=== PATIENT | female | born 1990 | race Caucasian/White ===

== ENCOUNTER 2019-11-08 09:13 | Emergency (ER) | payer OTHER ==
[~2019-11-08] VITALS: Ht 160 cm; Wt 65.8 kg
[~2019-11-08 09:13] MED LIST: BACTRIM DS TAB1 EACH PO; COLACE100 MG PO; CYCLOBENZAPRINE; VICODIN; ZOFRAN ODT4 MG PO
[2019-11-08] MEDS ORDERED: NOHOMEMEDICATIONS (09:18)
[2019-11-08 09:51] LABS: ABSOLUTE BASOPHILS 0.1 thou/uL (0.0-0.2); ABSOLUTE LYMPHOCYTES 1.9 thou/uL (0.8-5.3); ABSOLUTE MONOCYTES 0.3 thou/uL (0.0-1.2); ABSOLUTE NEUTROPHILS 7.7 thou/uL (1.6-8.1); BASOPHILS 0.9 %; EOSINOPHILS 0.1 %; HEMATOCRIT 42.8 % (37.0-47.0); HEMOGLOBIN 14.9 gm/dL (12.0-15.0); LYMPHOCYTES 19.1 %; MCH 30.7 pg (26.0-34.0); MCHC 34.8 g/dL (28.0-37.0); MCV 88.1 fL (80.0-100.0); MONOCYTES 3.1 %; MPV 9.4 fl. (7.2-11.1); NUCLEATED RBCS 0 /100WBC; PLATELET COUNT* 252 thou/uL (150-400); POLYS 76.8 %; RBC 4.86 mil/uL (4.20-5.00)
[2019-11-08 09:55] LABS: CALCIUM 8.5 mg/dL (8.5-10.1); CREATININE 0.9 mg/dL (0.6-1.3); POTASSIUM 3.6 mmol/L (3.5-5.1)
[2019-11-08 10:05] LABS: ALBUMIN 4.1 g/dL (3.4-5.0); TOTAL BILIRUBIN 0.7 mg/dL (<0.1-1.0)
[2019-11-08] MEDS ORDERED: XANAX 0.25 MG0.25 MG PO (10:19)
[2019-11-08 10:50] VITALS: BP 126/74
--- NOTE | 2019-11-08 16:59 | EKG ---
[place] [address] ELECTROCARDIOGRAM REPORT Name: IRINA CHOU Room: [facility]#: [id number] Admission: 11/08/19 Attend Phys: Discharge: 11/08/19 Date of : 89 Date of Service: 11/08/1953 Report #: [id number] THIS REPORT FOR: //name// [facility] ED Test Date: 2019-11-08 Test Time: 09:55:33 Pat Name: IRINA CHOU Department: Room: Gender: Manager Income Tax: [place] : 1990 Requested By: Brennan Minor Order Number: [id number] MD: Edin Hardin Measurements Intervals Lillian Rate: 64 P: -13 AL: 161 QRS: 55 QRSD: 98 T: 0 QT: 440 QTc: 454 Interpretive Statements Sinus arrhythmia Borderline T wave abnormalities No previous ECG available for comparison Electronically Signed On 11-08-2019 16:57:04 CDT by Edin Hardin [email or web address] <ELECTRONICALLY SIGNED> By: Edin Hardin MD, [facility] 11/08/19 1657 4 4 Edin Hardin MD, FACC /EPI
== END 2019-11-08 10:54 | disposition home or self-care (01) ==
LOC: M.ERS 09:13
PROVIDERS: Emergency Medicine
DX: F41.9 Anxiety disorder, unspecified (principal); F17.210 Nicotine dependence, cigarettes, uncomplicated; Z88.0 Allergy status to penicillin